=== PATIENT | female | born 1965 | race Caucasian/White ===

== ENCOUNTER 2016-10-04 11:47 | Inpatient (IN) ==
[2016-10-04] MEDS ORDERED: TORADOL IV ONE (12:12)
[2016-10-04] MEDS ORDERED: NS 1,000 ML IV ONE (12:12)
[2016-10-04] MEDS ORDERED: BENADRYL IV ONE (12:12)
[2016-10-04] MEDS ORDERED: CLINDAMYCIN 600 MG/NS 50 ML IV ONE (12:12)
[2016-10-04 12:45] LABS: MANUAL DIFF NEEDED? NO
[2016-10-04 12:46] LABS: BASO% 0.2 % (0.0-0.8); HEMATOCRIT 42.1 % (37.0-47.0); HEMOGLOBIN 13.7 g/dL (12.0-16.0); IMM GRAN# 0.04 X1000 (0.0-0.04); IMM GRAN% 0.3 % (0.0-0.5); LYMPH# 1.26 X1000 (1.2-3.4); LYMPH% 9.6 % (20.5-51.1); MCH 29.8 PG (27-31); MCHC 32.5 g/dL (33-37); MCV 91.5 FL (81-99); MONO# 0.98 X1000 (0.11-0.59); MONO% 7.4 % (1.7-9.3); MPV 10.3 FL (7.4-10.4); NEUT% 82.5 % (42.2-75.2); PLT 280 X1000 (130-400)
[2016-10-04 13:05] LABS: AGAP 14; ALBUMIN 4.5 g/dL (3.5-5.0); ALKALINE PHOSPHATASE 73 U/L (32-104); BUN 6 mg/dL (8-22); CALCIUM 10.1 mg/dL (8.8-10.2); CHLORIDE 98 mmol/L (98-107); COSMO 275; GOT 20 U/L (10-30); GPT 20 U/L (10-36); POTASSIUM 3.6 mmol/L (3.5-5.1); SODIUM 138 mmol/L (136-145); TCO2 26 mmol/L (25-35); TOTAL PROTEIN 8.7 g/dL (6.3-8.3)
[2016-10-04] MEDS ORDERED: ZOFRAN IV ONE (13:56)
[2016-10-04] MEDS ORDERED: MORPHINE IV ONE (13:56)
--- NOTE | 2016-10-04 14:04 | Diag Imaging Result Document ---
PROCEDURE NAME: NECK W/CONTRAST - 10/04/2016 CT NECK WITH CONTRAST: TECHNIQUE: Exam performed with intravenous contrast. A dose reduction protocol was used. COMPARISON: No comparison exam. FINDINGS: There is a 1.3 x 0.6 cm lucency at the anteromedial left maxilla, which is suspicious for periodontal abscess. There is thinning of the overlying anterior cortex. There is inflammation of nearby anterior soft tissues of the face, which is compatible with cellulitis. There is an approximately 1 x 0.6 cm low-density area in the deep subcutaneous tissues adjacent to the thinned maxillary margin, which is suspicious for soft tissue abscess. There are multiple small bilateral high and low cervical and submandibular lymph nodes, overall most prominent on the left. IMPRESSION: Apparent periodontal abscess at anteromedial left maxilla. Apparent approximately 1 x 0.6 cm deep subcutaneous abscess adjacent to the anterior margin of the involved maxilla. Facial cellulitis. Small bilateral cervical and submandibular lymph nodes. MTDD
[2016-10-04] MEDS ORDERED: CLINDAMYCIN 300 MG in NS 50 ML IV ONE (15:01)
[2016-10-04] MEDS ORDERED: KEFZOL 1 GM/D5W 50 ML IV ONE (15:01)
--- NOTE | 2016-10-04 15:05 | PROVIDER DOCUMENTATION ---
Addendum entered and electronically signed by London Munoz PA 15:20: Additional Progress - ADDITIONAL PLAN OF CARE/RESULTS Additional Progress/Plan/Lab Results: Pt is actually Dr. Onofre's Pt. Will consult group and transfer to [facility]. - ADDITIONAL CONSULTS #4 Consult: Dr. Mariano Time Discussed: 15:19 Consult Disposition: Admit (To [facility]) Original Note: HPI-EENT General - General Chief Complaint: Facial Pain Stated Complaint: SINUS PX/FACIAL PX Time Seen by Provider: 10/04/16 11:57 Source: patient, family Allergies/Adverse Reactions: Patient Allergies Allergy/AdvReac Type Severity Reaction Status Date / Time codeine [Codeine] Allergy Severe vomit Verified 07/30/16 15:58 Home Medications: Home Medication List Medication Instructions Recorded Confirmed Last Taken Type Alprazolam [Xanax] 0.5 mg PO HS 05/07/12 07/30/16 01/08/16 History Duloxetine HCl [Cymbalta] 60 mg PO QHS 09/17/15 07/30/16 01/08/16 History Estrogens, Conjugated [Premarin] 0.625 mg PO DAILY 11/12/15 07/30/16 01/08/16 History Polyethylene Glycol 3350 [Miralax] 17 gm PO DAILY #30 powd.pack 11/13/1501/08/16 Rx Linaclotide [Linzess] 290 mcg PO DAILY 01/07/16 07/30/16 01/07/16 History Hydrocodone/APAP 7.5 mg/325 mg 1 each PO Q4H PRN #30 tablet 01/09/16 07/30/16 Unknown Rx [[place]-7.5] - History of Present Illness-EENT General Nature of Presenting Problem: This pt presents today c complaints of dental infection. She reports that her PCP placed her on antibiotics 2 days ago for her toothache but today she woke up and there was redness spreading up the left side of her face and into her neck. She denies any fever. No respiratory distress. No other issues or complaints. EENT Location: reports: facial, dental, other (neck) Quality of Pain: reports: aching Severity: reports: moderate Onset/Duration: reports: 2 days ago Timing: reports: still present, getting worse Prearrival Treatment: Initiated prescription meds Associated Symptoms: reports: tooth pain Similar Symptoms Previously?: Yes Recently seen or treated by another doctor?: Yes Review of Systems - Adult - REVIEW OF SYSTEMS - ADULT Constitutional: reports: no symptoms reported. denies: chills, fever Eyes: reports: no symptoms reported. denies: discharge, dry eyes Ears, Nose, Mouth & Throat: reports: see HPI, mouth/dental pain, mouth swelling . denies: nose pain Cardiovascular: reports: no symptoms reported. denies: chest pain, edema Respiratory: reports: no symptoms reported. denies: chronic cough, cough Gastrointestinal: reports: no symptoms reported. denies: abdominal pain, hematemesis Genitourinary: reports: no symptoms reported. denies: dysuria, discharge Musculoskeletal: reports: no symptoms reported. denies: bone pain, back pain Integumentary: reports: see HPI. denies: mole changes, nail changes Neurological: reports: no symptoms reported. denies: ataxia, dizziness/vertigo Psychiatric: reports: no symptoms reported. denies: anxiety, anti-depressant use Endocrine: reports: no symptoms reported Hematologic/Lymphatic: reports: no symptoms reported Allergic/Immunologic: reports: no symptoms reported All Other Systems: Reviewed and Negative Past History - Adult - PAST MEDICAL HISTORY-ADULT Review of Records: reports: Old Records Reviewed, Nursing Assessment Review, Medications Reviewed, Social history reviewed & non-contributory. Major Childhood Illnesses: reports: denies history Cardiovascular: reports: CAD Respiratory: reports: denies history Gastrointestinal: reports: denies history Obstetrical/Gynecological: reports: denies history Genitourinary: reports: denies history Musculoskeletal: reports: denies history Neurological: reports: Seizures/Epilepsy Psychiatric: reports: anxiety, depression Endocrine/Immune: reports: denies history Other Conditions: reports: denies history - PRIOR SURGERIES/PROCEDURES Surgical/Procedure History: reports: pacemaker, hysterectomy - IMMUNIZATION STATUS Childhood Immunizations: See Nurse Assessment Flu Vaccine: See Nurse Assessment - FAMILY HISTORY Family History: reviewed, not pertinent Physical Exam- EENT - Physical Exam EENT Initial Vital Signs Reviewed: Yes General Appearance: alert, no apparent distress Eye Exam: bilateral eye: normal inspection, PERRL, EOMI Ear Exam: bilateral ear: auricle normal, canal normal, TM normal Nasal Exam: normal inspection Throat Exam: dental tenderness, mandibular swelling, maxillary swelling Neck: full range of motion, other (erythema) Respiratory: chest non-tender, lungs clear, normal breath sounds, no pleuratic chest pain, no respiratory distress, no accessory muscle use Cardiovascular: normal peripheral pulses, regular rate, rhythm Abdominal Exam: normal bowel sounds, non tender, soft Extremity: normal range of motion, non-tender, normal gait, normal inspection Integumentary: normal turgor, warm/dry, erythema Neurologic: grossly normal, no motor/sensory deficits Progress - CT/MRI 1 CT Study: Neck CT Results: peridontal abscess and subcutaneous abscess adjacent to maxilla - CONSULTS/PCP/HOSPITALIST Notification #1 *Consult/PCP/Hospitalist*: Dr. Connell Time Discussed: 15:04 Consult Disposition: Admit #2 Consult: Dr. Woodall Time Discussed: 15:04 Consult Disposition: Will see in ED Departure - Departure Time of Disposition Order: 15:04 DIAGNOSIS: Acute periodontal abscess, Facial cellulitis Disposition: ADMITTED INPATIENT 09 Certified Medical Emergency: Emergent Condition: Stable Attestation - Physician/ OLU Attestation Patient care was provided by Advanced Practice Provider:: Yes Advanced Practice Provider:: London Munoz Advanced Practice Provider documentation review:: The Mid-level provider documentation, treatment plan and medical decision making was reviewed by the physician who agrees with all treatment and medical decision making by the P.
[2016-10-04] MEDS ORDERED: ZOFRAN IV PRN ×2 (15:11→15:20)
[2016-10-04] MEDS ORDERED: MORPHINE IV PRN (15:11)
[2016-10-04] MEDS ORDERED: NS 1,000 ML IV SCH (15:15)
--- NOTE | 2016-10-04 20:02 | HISTORY AND PHYSICAL ---
CHIEF COMPLAINT: Left nose, jaw pain, neck pain. HISTORY OF PRESENT ILLNESS: The patient is a 51-year-old white female who has apparently been seeing Timothy nurse practitioner over at Dr. Onofre's office. She had seen him about 2 weeks ago and was diagnosed with possible sinusitis and she was having facial pain, left maxillary primarily, was treated with Augmentin. She took that and seemed to improve briefly but then [facility] and saw another nurse practitioner Keith who treated her with another antibiotic and with a steroid pack and asked her to come back for further evaluation today. When she got there today he advised her to go on in to the ER at [facility]. She has been transferred from [place] and apparently has seen Dr. Quintero in the past but not recently. MEDICATIONS: Prior to admission are Xanax 0.25 mg frequency unknown, Cymbalta 60 mg daily frequency unknown, Linzess 290 mcg frequency unknown, MiraLAX 17 g frequency unknown, Premarin 0.625 mg frequency unknown, [place] 7.5 mg frequency unknown. ALLERGIES: Codeine. PAST MEDICAL HISTORY: 1. Fibromyalgia. 2. Pacemaker with history of sick sinus syndrome remotely. 3. Chronic constipation followed by Dr. Castanon. PAST SURGICAL HISTORY: 1. Cholecystectomy. 2. Pacemaker. 3. Hysterectomy with bilateral SO. FAMILY HISTORY: Noncontributory. SOCIAL HISTORY: The patient lives in [place]. She is . She has children. 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 She had about a half a pack history of smoking in her lifetime, has not been a smoker many years. Denies alcohol and drug use. REVIEW OF SYSTEMS: Negative except as above except for possible some low-grade fever. She denies chest pains, palpitations. PHYSICAL EXAM: GENERAL: Well-developed, well-nourished white female, has received pain medication at [facility], has been transferred from there. SKIN: There is moderate redness over the nasal bridge and left cheek area extending down into the left neck down toward the left clavicle. There is mild to moderate swelling there as well. Mild redness right medial cheek. HEENT: Sclerae clear. PERRL. EOMI. OP there is abscesses noted at the left maxillary area. NECK: Mild shoddy LA, no TMG or bruits. CARDIOVASCULAR: RRR without MGR. LUNGS: CTA. BACK: No CVA tenderness. ABDOMEN: Soft, no mass, organomegaly. Active bowel sounds. BREASTS/PELVIC/RECTAL: Deferred. EXTREMITIES: No calf tenderness, cords or edema. Peripheral pulses 2+ NEURO: Cranial nerves 2-12 are intact without focal deficits. DATA: CT scan of the neck done at [facility] reveals periodontal abscess at the anterior medial left maxilla 1 x 0.6 cm deep subcutaneous abscess adjacent to the anterior margin of the involved maxilla with facial cellulitis identified, small bilateral cervical and submandibular lymph nodes noted. LABS: White count 13.19, hemoglobin 13.7, hematocrit 42, platelets 280,000, neutrophils 83%, lymphocytes 9.6, monocytes 7.4. Sodium 138, potassium 3.6, chloride 98, CO2 26, BUN 6, creatinine 0.9, glucose 138, calcium 10.1, total bilirubin 0.2, AST 20, ALT 20, alkaline phosphatase 73, total protein 8.7, albumin 4.5, plasma lactate 3.1. ASSESSMENT: 1. Periodontal abscesses left maxillary area with resulting facial cellulitis left face extending down into the left neck. 2. Pacemaker. 3. Fibromyalgia. 4. Chronic constipation. PLAN: At this time will admit the patient to the hospital. She has been transferred from [facility] as Dr. Onofre does not work there and her nurse practitioners she has been seeing do not work there either. The patient has received Ancef and clindamycin IV and I will continue those. The physician's social services assistant at [facility] has told me he has spoke with Dr. Woodall and that is the recommendation of antibiotics that Dr. Woodall had given. Dr. Woodall will be consulted and will see the patient in consultation. Apparently he had been notified from [facility]. Will give morphine as needed for pain. She has received 1 dose of Toradol there at [facility] as well. Continue Linzess, MiraLAX, Xanax, Cymbalta, give her IV hydration, Zofran as needed for nausea, vomiting. Start her on Culturelle to help prevent C. difficile colitis. Will check echocardiogram when available due to the pacemaker and the extensive cellulitis and abscess. Blood cultures x2 have been obtained and will be followed. Will repeat CBC, BMP in the morning.
[2016-10-04] MEDS: NS + KCL 20 MEQ 1,000 ML IV SCH (21:21)
[2016-10-04] MEDS: CULTURELLE PO SCH (21:22)
[2016-10-04] MEDS: MORPHINE IV PRN (21:22)
[2016-10-04] MEDS: XANAX PO SCH (21:22)
[2016-10-04] MEDS: KEFZOL 1 GM/D5W 50 ML IV SCH (22:49)
[2016-10-05] MEDS: MORPHINE IV PRN ×3 (01:32→12:40)
[2016-10-05] MEDS: CLINDAMYCIN 600 MG/NS 50 ML IV SCH ×3 (03:26→18:37)
[2016-10-05] MEDS: LINZESS PO SCH (06:01)
[2016-10-05] MEDS: KEFZOL 1 GM/D5W 50 ML IV SCH ×3 (06:01→22:18)
[2016-10-05 06:33] LABS: MANUAL DIFF NEEDED? NO
[2016-10-05 06:39] LABS: BASO% 0.4 % (0.0-0.8); EOS# 0.08 X1000 (0.0-0.7); EOS% 0.8 % (0.0-10.0); HEMATOCRIT 36.1 % (37.0-47.0); HEMOGLOBIN 11.9 g/dL (12.0-16.0); IMM GRAN# 0.03 X1000 (0.0-0.04); IMM GRAN% 0.3 % (0.0-0.5); LYMPH# 2.82 X1000 (1.2-3.4); LYMPH% 27.1 % (20.5-51.1); MCH 30.4 PG (27-31); MCV 92.3 FL (81-99); MONO# 0.75 X1000 (0.11-0.59); MONO% 7.2 % (1.7-9.3); MPV 9.9 FL (7.4-10.4); NEUT% 64.2 % (42.2-75.2); PLT 260 X1000 (130-400); RBC 3.91 XMIL (4.2-5.4)
[2016-10-05 06:55] LABS: HEMOGLOBIN A1C 5.5 % (4.8-6.0)
[2016-10-05 07:10] LABS: AGAP 12; BUN 6 mg/dL (8-22); CALCIUM 8.4 mg/dL (8.8-10.2); CHLORIDE 105 mmol/L (98-107); COSMO 280; POTASSIUM 4.1 mmol/L (3.5-5.1); SODIUM 142 mmol/L (136-145); TCO2 25 mmol/L (25-35)
--- NOTE | 2016-10-05 07:15 | EKG Report ---
Test Performed on : 10/05/2016 07:00:50 AM Test Reason : leukocytosis r/o pericarditis Blood Pressure : / mmHG Vent. Rate : 068 BPM Atrial Rate : 068 BPM P-R Int : 220 ms QRS Dur : 092 ms QT Int : 380 ms P-R-T Axes : 047 008 034 degrees QTc Int : 404 ms Atrial-paced rhythm with prolonged AV conduction Possible Anterior infarct , age undetermined Abnormal ECG When compared with ECG of 30-JUL-2016 16:29, Electronic atrial pacemaker has replaced Sinus rhythm. Unconfirmed Result
[2016-10-05] MEDS: PREMARIN PO SCH (10:33)
[2016-10-05] MEDS: MIRALAX PO SCH (10:33)
[2016-10-05] MEDS: CYMBALTA PO SCH (10:33)
[2016-10-05] MEDS: CULTURELLE PO SCH ×2 (10:33→20:44)
[2016-10-05] MEDS: NS + KCL 20 MEQ 1,000 ML IV SCH (10:33)
--- NOTE | 2016-10-05 14:03 | PROGRESS NOTE ---
DATE: 10/05/2016 SUBJECTIVE: Patient still complains of pain in her left maxillary jaw area, left neck but seems to be slightly less swollen today. OBJECTIVE: Vital signs: Afebrile, pulse 61, respirations 12, blood pressure 141/69, O2 saturation on room air 95 to 99%. HEENT: Left face with less redness and swelling at the left cheek and nasal bridge area. Left neck also improved with redness and swelling. OP still has prominent abscesses left maxillary area with poor dentition in that area especially of 2 teeth. CV: RRR without distinct murmur. Lungs: CTA. Abdomen: Soft, nontender, nondistended. No mass or organomegaly. Extremities: No calf tenderness, cords, or edema. LABORATORY: White count down from 13 to 10.4, hemoglobin 11.9, platelets 260,000. Sodium 142, potassium 4.1, chloride 105, CO2 25, BUN 6, creatinine 0.7, calcium 8.4, hemoglobin A1c 5.5. Blood cultures x2 negative thus far. EKG: Paced rhythm with nonspecific anterior ST changes from yesterday. ASSESSMENT: 1. Periodontal abscesses left maxillary area with resulting facial and left neck cellulitis, improving. 2. Pacemaker. 3. Fibromyalgia. 4. Chronic constipation. PLAN: Continue Ancef and clindamycin IV. Pain control with IV narcotics as required. Continue Linzess, MiraLAX, Xanax, Cymbalta, and IV hydration. Continue Culturelle to help prevent C. difficile colitis. Patient is going to be evaluated by Dr. Woodall and consult has been placed yesterday for him to see the patient regarding long-term possible removal of the teeth that are the culprit.
[2016-10-05] MEDS: XANAX PO SCH (20:44)
[2016-10-06] MEDS: NS + KCL 20 MEQ 1,000 ML IV SCH (02:37)
[2016-10-06] MEDS: CLINDAMYCIN 600 MG/NS 50 ML IV SCH (02:37)
[2016-10-06] MEDS: KEFZOL 1 GM/D5W 50 ML IV SCH ×3 (06:11→23:44)
[2016-10-06] MEDS: LINZESS PO SCH (06:11)
[2016-10-06 07:29] LABS: MANUAL DIFF NEEDED? NO
[2016-10-06 07:37] LABS: BASO% 0.5 % (0.0-0.8); EOS# 0.13 X1000 (0.0-0.7); HEMATOCRIT 37.7 % (37.0-47.0); HEMOGLOBIN 12.2 g/dL (12.0-16.0); IMM GRAN# 0.02 X1000 (0.0-0.04); IMM GRAN% 0.3 % (0.0-0.5); MCH 29.8 PG (27-31); MCHC 32.4 g/dL (33-37); MONO# 0.47 X1000 (0.11-0.59); MONO% 7.2 % (1.7-9.3); MPV 9.7 FL (7.4-10.4); PLT 274 X1000 (130-400)
[2016-10-06 07:51] LABS: AGAP 13; BUN 8 mg/dL (8-22); CALCIUM 8.7 mg/dL (8.8-10.2); CHLORIDE 104 mmol/L (98-107); COSMO 281; POTASSIUM 4.3 mmol/L (3.5-5.1); SODIUM 142 mmol/L (136-145); TCO2 25 mmol/L (25-35)
[2016-10-06] MEDS: CULTURELLE PO SCH ×2 (10:09→20:14)
[2016-10-06] MEDS: CYMBALTA PO SCH (10:09)
[2016-10-06] MEDS: MIRALAX PO SCH (10:10)
[2016-10-06] MEDS: PREMARIN PO SCH (10:10)
--- NOTE | 2016-10-06 17:07 | ECHO REPORT ---
ORDER DATE: 10/06/2016 INDICATION: A 51-year-old female with leukocytosis, dental abscess, tobacco abuse, pacemaker, and sick sinus syndrome. M-MODE MEASUREMENTS: Right ventricle: 2.9 cm. Left ventricle end diastole: 5.1 cm. Left ventricle end systole: 3.5 cm. Posterior wall: 0.8 cm. Interventricular septum: 0.8 cm. Left atrium: 3.0 cm. Aortic root: 3.3 cm. SUMMARY OF 2-DIMENSIONAL IMAGIN. Left ventricular function is normal with an ejection fraction of 57%. The ventricular chamber appears to be mildly enlarged. 2. A pacemaker lead is noted within the right-sided chamber. 3. The right ventricle appears to be at the upper limits of normal. 4. The aortic valve is morphologically normal. Color flow mapping is unremarkable. 5. The mitral valve shows a [id number] degree of regurgitation. 6. Pulse wave Doppler of mitral inflow shows mild reversal of the E and the A wave. 7. Tissue Doppler of septal and lateral mitral annulus averages 4.5 cm. 8. Pulse wave Doppler of pulmonary venous flow is normal. 9. There is impaired left ventricular relaxation. 10.The tricuspid valve looks normal with mild regurgitation. 11.The inferior vena cava is not dilated. 12.The pulmonary pressure is estimated at 30 mmHg. 13.The pulmonic valve is normal. Color flow mapping is unremarkable. 14.There is no pericardial effusion and no sign of thrombus. SUMMARY: In summary, this study shows: 1. Normal left ventricular systolic function. 2. Impaired left ventricular relaxation. 3. [id number] degree of mitral regurgitation. 4. Pulmonary systolic pressure is estimated at 38 mmHg. Clinical correlation is recommended.
[2016-10-06] MEDS: XANAX PO SCH (20:14)
[2016-10-07] MEDS: KEFZOL 1 GM/D5W 50 ML IV SCH (06:37)
[2016-10-07] MEDS: CYMBALTA PO SCH (08:11)
[2016-10-07] MEDS: MIRALAX PO SCH (08:11)
[2016-10-07] MEDS: CULTURELLE PO SCH (08:12)
[2016-10-07] MEDS: PREMARIN PO SCH (08:12)
[2016-10-07] MEDS: LINZESS PO SCH (08:18)
[2016-10-07 08:43] VITALS: BP 131/85
--- NOTE | 2016-10-07 22:10 | DISCHARGE SUMMARY ---
ADMISSION DATE: 10/04/2016 DISCHARGE DATE: 10/07/2016 DISCHARGING DIAGNOSIS: Left-sided face cellulitis associated with periodontal abscess in the left upper pre-molar. SECONDARY DIAGNOSIS: 1. Abnormal electrocardiogram. Cardiac catheterization was negative in 2005. 2. Depression with anxiety. 3. Hyperlipidemia. 4. Irritable bowel syndrome with constipation. 5. Kidney stone. 6. History of sick sinus syndrome. 7. History of syncope due to vasovagal. 8. Postmenopausal. CONSULTS: Alden Woodall MD BRIEF HISTORY: Please see the H and P that was done by Dr. Mariano. In brief, she is a 51-year- old white female who was admitted to the hospital with left facial pain due to periodontal abscess in the left upper teeth which was badly infected. Patient was given IV antibiotics with IV Ancef and clindamycin. Dr. Woodall was consulted. Patient got better with IV antibiotics, recommended to follow up with Dr. Woodall for removal of the bad teeth. During this admission patient had echocardiography done which showed normal LV systolic function, mild to moderate MR, no evidence of endocarditis. CT neck, apparent periodontal abscess with anteromedial left maxilla with 1 to 0.6 cm deep abscess noted. She got better. FOLLOWUP LABORATORIES: CBC: White cell count came down to 6.5, hematocrit 37, platelets 274,000. SMA7 is normal. LFTs were normal. Blood cultures were negative. DISCHARGE INSTRUCTIONS: Outpatient followup with a dentist. Xanax 0.5 at bedtime. Duloxetine 60 daily. Estrogen 0.625 daily. MiraLAX 17 g daily. Linzess 290 mcg daily. Augmentin 1 tablet p.o. b.i.d. Culturelle 1 tablet daily. Follow up in my office next week as well as Dr. Woodall. [facility]
== END 2016-10-07 10:09 | disposition home or self-care (01) | DRG 158 ==
LOC: P.ED 11:47 → P.MEDSURG 11:48 → 3N 16:32
PROVIDERS: ADMIT Internal Medicine; ATTEND Internal Medicine
DX: K05.219 Aggressive periodontitis, localized, unspecified severity (principal); L03.211 Cellulitis of face; L03.221 Cellulitis of neck; N20.0 Calculus of kidney; M79.7 Fibromyalgia; F41.8 Other specified anxiety disorders; E78.5 Hyperlipidemia, unspecified; R94.31 Abnormal electrocardiogram [ECG] [EKG]; K58.1 Irritable bowel syndrome with constipation; Z95.0 Presence of cardiac pacemaker; Z87.891 Personal history of nicotine dependence; Z79.890 Hormone replacement therapy; Z79.899 Other long term (current) drug therapy
CPT/HCPCS: 70491; 80048; 80053; 83036; 83605; 85025; 87040; 93005; 93306; 94761; J0690; J1200; J1885; J2270; J2405; J3480; J7030; Q9967; S0077